=== PATIENT | male | born 1965 | race Caucasian/White ===

== ENCOUNTER 2021-03-02 03:45 | Emergency (ER) | payer SELFPAY ==
[2021-03-02] MEDS ORDERED: Fluorescein 1 MG Ophth Strip EYEBOTH ONE ×2 (04:06→04:39)
[2021-03-02] MEDS ORDERED: Tetracaine HCl/PF 0.5% 4 ML Bottle EYEBOTH ONE (04:06)
[2021-03-02] MEDS ORDERED: Dexamethasone/Tobramycin 0.1-0.3% Ophth Susp 2.5 ML Bottle EYERT ONE (04:30)
--- NOTE | 2021-03-02 04:34 | EDM.PDOC ---
ED HPI GENERAL MEDICAL PROBLEM - General Chief Complaint: ENT Problem Stated Complaint: SOMTHING IN RIGHT EYE Time Seen by Provider: 03/02/21 04:20 Source of Information: Reports: Patient, Family, RN, RN Notes Reviewed History Limitations: Reports: Intoxication - History of Present Illness INITIAL COMMENTS - FREE TEXT/NARRATIVE: Patient is a 55-year-old male who presents to ER with complaint of something in the right eye. He states this happened approximately 2 AM, states he wonders if it is a piece of sand. He states he did use a Q-tip to try to get it out of his eye, and feels it is still under the lid. Denies any allergies to any medications. 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 Oncologic (Cancer) History: Reports: Other (See Below) Other Oncologic History: skin ca Dermatologic History: Reports: Benign Melanoma - Infectious Disease History Infectious Disease History: Reports: Chicken Pox - Past Surgical History GI Surgical History: Reports: Cholecystectomy, Colonoscopy Musculoskeletal Surgical History: Reports: Arthroscopic Knee Social & Family History - Tobacco Use Tobacco Use Status *Q: Never Tobacco User Second Hand Smoke Exposure: No - Caffeine Use Caffeine Use: Reports: None - Recreational Drug Use Recreational Drug Use: No ED ROS GENERAL - Review of Systems Review Of Systems: Comprehensive ROS is negative, except as noted in HPI. ED EXAM GENERAL W FULL EYE - Physical Exam Exam: See Below Exam Limited By: Intoxication General Appearance: Alert, WD/WN, No Apparent Distress Eye Exam: Right Eye: Corneal Abrasion, Foreign Body (None noted after dye and flush twice), Bilateral Eye: Conjunctival Injection, EOMI With Correction: No Eyelids: Right: Erythema, Foreign Body (None noted), Lid Everted for Exam, Bilateral: Normal Appearance Conjunctiva & Sclera: Right: Foreign Body (none noted), Injected Cornea Exam: Right: Corneal Abrasion Extraocular Movements: Bilateral: Intact Pupils: Normal Accommodation Pupillary Size: Bilateral: 3 mm Pupillary Reaction: Bilateral: Brisk Ears: Normal External Exam, Hearing Grossly Normal Nose: Normal Inspection Throat/Mouth: Normal Inspection, Normal Voice, No Airway Compromise Head: Atraumatic, Normocephalic Neck: Normal Inspection, Supple, Non-Tender, Full Range of Motion Respiratory/Chest: No Respiratory Distress, Lungs Clear, Normal Breath Sounds, N o Accessory Muscle Use, Chest Non-Tender Cardiovascular: Normal Peripheral Pulses, Regular Rate, Rhythm, No Edema, No Gallop, No JVD, No Murmur, No Rub GI/Abdominal: Normal Bowel Sounds, Soft, Non-Tender (Male) Exam: Deferred Rectal (Males) Exam: Deferred Back Exam: Normal Inspection, Full Range of Motion, NT Extremities: Normal Inspection, Normal Range of Motion, Non-Tender, Normal Capillary Refill, No Pedal Edema Neurological: Alert, Oriented, CN II-XII Intact, Normal Cognition, Normal Gait, Normal Reflexes, No Motor/Sensory Deficits Psychiatric: Normal Affect, Normal Mood Skin Exam: Warm, Dry, Intact, Normal Color, No Rash Lymphatic: No Adenopathy ED EYE w/ Add Procedure - Eye Procedure Alcaine Drops Administered: Yes Eye FB Removal: Removal w/ Cotton Swab (right eyelid inverted, swabbed with moist cotton swab, no foreign body note) Eye Irrigated w/ Saline (ccs): 100 Antibiotic Oinment/Drps Admin: Right Eye (Tobradex) - Additional/Other Procedure(s) Other (Free Text) Procedure(s) [Text1]: After tetracaine and fluorescein administered, right eyelid inverted, black light used to visualize. No foreign body noted. Patient states he felt as though there was a piece of sand under the upper lid. Eye was irrigated with 40cc NS after being swabbed with moist cotton swab. About 10 minutes later patient states he still feels there is a piece of sand in the eye. Repeated tetracaine and fluorescein and utilized the black light. Lid inverted again, eyeball looking downward, no foreign object noted. Swabbed with moist cotton swab and irrigated with 60cc NS. Tobradex administered and sent home with patient. Right eye covered with bandage to keep the patient from rubbing and picking. Patient had continually been rubbing and pulling at the upper eyelid. Explained to the patient that with a corneal abrasion it may still feel as though there is something in the eye, but I visualized nothing. Patient was encouraged to follow up with optometry if no improvement, but to stop manipulating the eyelid and eye. Course - Vital Signs Last Recorded V/S: Last Vital Signs Temp 96.1 F L 03/02/21 03:55 Pulse 75 03/02/21 03:55 Resp 18 03/02/21 03:55 BP 131/85 03/02/21 03:55 Pulse Ox 95 03/02/21 03:55 - Orders/Labs/Meds Meds: Medications Discontinued Medications Generic Name Dose Route Start Last Admin Trade Name Andrey PRN Reason Stop Dose Admin Fluorescein Sodium 1 mg 03/02/21 04:06 03/02/21 04:12 Fluorescein 1 Mg Ophth Strip EYEBOTH 03/02/21 04:07 1 mg ONETIME ONE Administration Fluorescein Sodium 1 mg 03/02/21 04:39 03/02/21 04:50 Fluorescein 1 Mg Ophth Strip EYEBOTH 03/02/21 04:40 1 mg ONETIME ONE Administration Tetracaine HCl 1 ml 03/02/21 04:06 03/02/21 04:12 Tetracaine Hcl/Pf 0.5% 4 Ml Bottle EYEBOTH 03/02/21 04:07 1 dose ASDIRECTED ONE Administration Tobramycin/Dexamethasone 1 ml 03/02/21 04:30 03/02/21 04:51 Dexamethasone/Tobramycin 0.1-0.3% Ophth Susp 2.5 Ml Bottle EYERT 03/02/21 04:31 1 ml ONETIME ONE Administration Departure - Departure Time of Disposition: 04:32 Disposition: Home, Self-Care 01 Condition: Good Clinical Impression: Corneal abrasion Qualifiers: Encounter type: initial encounter Laterality: right Qualified Code(s): S05.01XA - Injury of conjunctiva and corneal abrasion without foreign body, right eye, initial encounter - Discharge Information *PRESCRIPTION DRUG MONITORING PROGRAM REVIEWED*: No *COPY OF PRESCRIPTION DRUG MONITORING REPORT IN PATIENT SHERRI: No Instructions: Corneal Abrasion, [id number] Referrals: PCP,None [Primary Care Provider] - Forms: ED Department Discharge Additional Instructions: Use TobraDex 1 to 2 drops every 2 hours for 1 to 2 days, then 1 to 2 drops every 4-6 hours for 1 to 2 days. If no improvement follow-up with your critical care physician Return to the ER with any worsening of problems No contact lenses in the eye for at least 1 week Sepsis Event Note (ED) - Evaluation Sepsis Screening Result: No Definite Risk
== END 2021-03-02 05:09 | disposition home or self-care (01) ==
LOC: DL.ED 03:45
DX: S05.01XA Injury of conjunctiva and corneal abrasion without foreign body, right eye, initial encounter (principal); I10 Essential (primary) hypertension; W22.8XXA Striking against or struck by other objects, initial encounter
CPT/HCPCS: 99283; A9270